=== PATIENT | female | born 1965 | race Caucasian/White ===

== ENCOUNTER → 2021-10-11 16:02 | Outpatient (CLI) | payer OTHER, SELFPAY ==
--- NOTE | 2021-10-11 | DI.ECHO.S_ITS ---
[facility]---------+ [facility] +---------+ : : [address] : : : : [id number] : : : : Phone: [phone]+ Echocardiogram Report + + :Name: WILBERTO BROUSSARD Study Date: 10/11/2021 Height: 62 in : :[facility] ReadingLocation: Weight: 175 lb : : Gender: Female BSA: 1.8 m2 : :: 1965 Age: 56 yrs BP: 133/90 mmHg: :Reason For Study: HYPERTENSION : :Ordering Physician: CIRA, : :TATY Whitley Performed By: Rosalind Mas : :Referring: TATY DENIS : + + Interpretation Summary Normal sinus rhythm. Normal LV size, wall thickness, wall motion and LV systolic function. EF is 60-65%. Mild LA enlargement; otherwise normal chamber sizes. No significant valvular abnormalities. No prior study available for comparison. Procedure: A two-dimensional transthoracic echocardiogram with color flow and Doppler was performed. The study quality was technically adequate. There is no prior echocardiogram noted for this patient. The patient was in sinus bradycardia with heart rates between 55-61 bpm during the exam. Left Ventricle: The left ventricle is normal in size. Proximal septal thickening is noted. The ejection fraction is estimated to be 60-65%. Right Ventricle: The right ventricle is normal in size and function. Atria: The left atrium is mildly dilated. Right atrial size is normal. There is no Doppler evidence for an interatrial shunt. Mitral Valve: The mitral valve is normal in structure and function. There is trace mitral regurgitation. Aortic Valve: The aortic valve is trileaflet. The aortic valve opens well. There is no aortic valve stenosis. No aortic regurgitation is present. Tricuspid Valve: The tricuspid valve is normal in structure and function. There is mild tricuspid regurgitation. Pulmonic Valve: The pulmonic valve leaflets are thin and pliable; valve motion is normal. There is trace pulmonic regurgitation. Great Vessels: The aortic root is normal size. The dimensions of the ascending aorta are normal. The IVC is of normal diameter and collapses greater than 50% with a sniff. This suggests a low right atrial pressure of 3 mm Hg. Pericardium/ Pleura There is no pericardial effusion. There is no pleural effusion. MMode/2D Measurements & Calculations LVIDd: 4.7 cm LVOT diam: 2.0 cm LVIDs: 3.0 cm Ao root diam: 2.8 cm FS: 36.8 % asc Aorta Diam: 3.4 cm IVSd: 0.70 cm Ao Arch Diam (Prox Trans): 3.0 cm LVPWd: 0.84 cm LV patterson. diameter/BSA (cm/m^2): 2.6 LV sys. diameter/BSA (cm/m^2): 1.6 LA A2 area: 22.4 cm2 RA long axis: 5.3 cm LA A4 area: 19.8 cm2 RA area: 15.7 cm2 LA length (vol): 5.5 cm RA vol: 39.8 ml LA vol: 68.5 ml RA : 22.1 ml/m2 LA vol index: 37.9 ml/m2 IVC diam: 1.7 cm RVD1 (basal): 3.8 cm RVD2 (mid): 3.4 cm TAPSE: 1.8 cm Doppler Measurements & Calculations Ao V2 max: 149.6 cm/sec LVOT Max Kai: 114.4 cm/sec Ao V2 mean: 111.7 cm/sec LV V1 max P.2 mmHg Ao max P.0 mmHg LV V1 VTI: 26.2 cm Ao mean P.3 mmHg YULISSA(I,D): 2.0 cm2 Ao V2 VTI: 41.2 cm YULISSA(V,D): 2.4 cm2 sev ratio: 0.64 YULISSA indexed to BSA (cm^2/m^2): 1.1 MV E max kai: 77.8 cm/sec TR max kai: 200.1 cm/sec MV A max kai: 70.2 cm/sec TR max P.0 mmHg MV E/A: 1.1 PA V2 max: 86.6 cm/sec Med Peak E' Kai: 7.4 cm/sec PA V2 mean: 61.4 cm/sec E/E' med: 10.5 PA mean P.7 mmHg Lat Peak E' Kai: 8.0 cm/sec PA pr(Accel): 19.1 mmHg E/E' lat: 9.7 E/e' average: 10.1 MV dec time: 0.26 sec SV([facility]): 81.0 ml Electronically signed by: Deepika Branch M.D. on Reading Physician:10/11/2021 10:51 PM
== END ==
PROVIDERS: Referring Provider Family Medicine; Visit Provider Family Medicine
DX: R93.1 Abnormal findings on diagnostic imaging of heart and coronary circulation (principal); I10 Essential (primary) hypertension; R60.9 Edema, unspecified; Z98.84 Bariatric surgery status; I07.1 Rheumatic tricuspid insufficiency
CPT/HCPCS: 93306

== ENCOUNTER → 2022-02-08 09:58 | Outpatient (CLI) | payer OTHER, SELFPAY ==
[2022-02-08 12:30] LABS: COVID19 -Nasal RAPID Negative (Negative)
== END ==
PROVIDERS: PCP Family Medicine; Referring Provider Orthopaedic Surgery Foot and Ankle Surgery; Visit Provider Orthopaedic Surgery Foot and Ankle Surgery
DX: Z20.822 Contact with and (suspected) exposure to COVID-19 (principal)
CPT/HCPCS: 87635; C9803

== ENCOUNTER 2022-02-10 11:28 | Day surgery (SDC) | payer OTHER, SELFPAY ==
[2022-02-02 09:37] VITALS: BMI 30.9
[2022-02-03 09:52] VITALS: BMI 30.9
[2022-02-10] VITALS (7 sets, daily range): BP systolic 121–139; BP diastolic 72–84; PULSE 60–90; RESP 11–28; TEMP 36.6; O2SAT 96–99; BMI 30.9
[2022-02-10] MEDS: LACTATED RINGERS 1,000 ML 42 ML IV ×2 (12:00→16:18)
--- NOTE | 2022-02-10 14:28 | PM.PREOP ---
Pre-operative Note COVID-19 COVID-19 status: Negative Interval Note History & Physical reviewed/Exam performed by Physician: Yes Changes to H&P: No
[2022-02-10] MEDS: CEFAZOLIN 2 GM/100 ML PREMIX 100 ML IV (15:04)
[2022-02-10] MEDS: ACETAMINOPHEN IV 1,000 MG/100 ML VIAL 400 MG IV (15:08)
--- NOTE | 2022-02-10 15:16 | SUR.OPER ---
Supine on padded OR bed, head on pillow, arms secured on padded arm boards at <90 degrees abduction, legs uncrossed, safety belt at lower torso, tape over blanket right over lower leg. Left lower leg in control of the Surgeon. Tiller bump under left hip and folded blankets under left lower leg. gel pad under right ankle and lower leg.
[2022-02-10] MEDS: EPINEPHrine 1 MG/ML 0.15 MG INJ (15:25)
[2022-02-10] MEDS: BUPIVACAINE 0.25% (PF) VIAL 30 ML INJ (15:26)
--- NOTE | 2022-02-10 16:05 | P.OP_ITS ---
Operative Date/Time/Diagnoses Date of procedure: 02/10/22 Time of procedure: 14:30 Pre-op diagnosis: Left ankle impingement, ankle sprain-left, history of Lulú-en-Y gastric bypass Post-op diagnosis: same Procedure & Clinicians Procedure: Debridement ankle arthroscopic left, CPT code 52828 Same procedure as scheduled: Yes Indications: Patient is a 56-year-old female that presents did with left ankle pain and impingement after a sprain. She has persistent anterior tibiotalar pain along the soft tissue especially when going up inclines consistent with impingement. Pain started getting worse in August of 2021 she got temporary relief with an injection but has now had increased in recurrent pain. She had an MRI from April 2021 the demonstrated mild sprain and her physical exam demonstrates stable ligaments but persistent pain anteriorly across the tibiotalar joint worse with dorsiflexion and implants consistent with anterior ankle impingement. She has been indicated for ankle arthroscopic debridement. The risks and benefits of the procedure have been discussed with the patient and they have been given the opportunity to ask questions. The risks of surgery include but are not limited to infection, persistence of pain, damage to nerves and blood vessels, DVT, PE, cardiopulmonary complications and . The patient expr essed a thorough understanding of the risks and benefits of surgery and has elected to proceed. Consent was signed in the office. Surgeon: Pam Ascencio Click Yes if Unassisted: Yes Anesthesia Type: General and Local Operative Notes Findings: Anterior ankle scarring and synovitis. No osteochondral lesions. No significant bony impingement lesions. Soft tissue debridement completed of scar tissue and synovitis anterior ankle and lateral gutter. Stable ankle ligamentous examination under anesthesia Closure Type: primary Specimen(s): none sent Estimated Blood Loss (mL): 5 Blood products transfused: none Tourniquet time (min): 34 Procedure in detail: Patient was seen in the preoperative unit the site of surgery and site were marked. The informed consent was confirmed. Patient was brought back to the operating room by the anesthesia team positioned supine on the operative table. General anesthesia was administered. A well-padded thigh tourniquet was placed. All bony prominences well padded. Ipsilateral hip bump was placed. The operative left lower extremities prepped and draped in the standard sterile fashion. Formal time-out procedure was performed confirming the patient's side and site of surgery administration of appropriate preoperative antibiotics. All were in agreement. Attention turned to the left lower extremity the skin sites for the medial and lateral portals were marked on the skin with care to avoid the a palpable superficial peroneal nerve and the Esmarch was exsanguinated and the tourniquet raised to 250 mmHg. In dorsiflexion a skin angelina and spread technique was used for the medial portal and then the joint was entered from the medial portal. Under direct visualization the lateral portal was established and taken spread technique. And the shaver introduced. Shaver was used to debride the soft tissue and scar. The joint was inspected. And the findings were as above. Cartilage was intact. There was thick as scar and synovitis along the anterior ankle joint draped over the tibiotalar articulation as well as thick scar along the lateral gutter. This was debrided using both the 2.7 and 4.0 Jacque. Once this was completed the portals were switched and the medial soft tissues were debrided. Was no significant bony impingement lesions. There were no osteochondral lesions. Once a thorough debridement was completed the instruments were removed the tourniquet was released and hemostasis achieved and the portals closed with nylon suture. Local anesthetic was injected for postoperative pain control. A sterile dressing with Xeroform gauze Webril and Freddy wrap were applied then the patient was placed into a walking boot the drapes removed she was woken from anesthesia and taken to recovery room in good condition. There no immediate complications from this procedure. Counts were correct. Complications: none Post-operative Condition: stable Disposition: PACU Plan for aftercare: Weightbear as tolerated in the boot. Can use compression stocking. Will start physical therapy in 2 weeks. Not tolerate narcotic medication cannot take anti- inflammatories. Will use Tylenol for pain. Did receive IV dose of Toradol at Hospital which she has tolerated in the past. Unable to take aspirin. Will be weightbear as tolerated and encouraged to move other extremities and use compression stocking.
[2022-02-10] MEDS: HYDROMORPHONE 2 MG INJ IV (16:16)
[2022-02-10] MEDS: ONDANSETRON 4 MG/2 ML INJ IV (16:16)
== END 2022-02-10 17:10 | disposition home or self-care (01) ==
PROVIDERS: PCP Family Medicine; Referring Provider Orthopaedic Surgery Foot and Ankle Surgery; Visit Provider Orthopaedic Surgery Foot and Ankle Surgery
PROC: (CPT 29897; principal; 2022-02-10 13:15)
DX: M25.872 Other specified joint disorders, left ankle and foot (principal); M65.872 Other synovitis and tenosynovitis, left ankle and foot
CPT/HCPCS: 29897; 01464; 82962; J0131; J0171; J0690; J1170; J1885; J2405; J2704; J3490

== ENCOUNTER → 2023-04-13 08:41 | Outpatient (CLI) | payer OTHER, SELFPAY ==
--- NOTE | 2023-04-13 | DI.RAD.S_ITS ---
PROCEDURE: FL UPPER GI W AIR INDICATIONS: NAUSEA, BLOATING, ABD PAIN, EPIGASTRIC COMPARISON: None. FINDINGS: KUB: Preprocedural prepleater film demonstrates a normal bowel gas pattern. No suspicious abdominal calcifications. Visualized solid organ contours appear normal. Bony structures appear unremarkable. Esophagus: Esophageal mucosa is normal on air-contrast views. On single-contrast views, there is normal esophageal peristalsis. No strictures, extrinsic mass effects, or diverticula. Small intermittent sliding-type hiatal hernia. Scant gastroesophageal reflux was elicited. The calibrated barium tablet passes rapidly through the esophagus and into the gastric pouch. The barium tablet was delayed passing through the proximal jejunum. Stomach: No mucosal masses or ulcers. Rapid transit of contrast through the proximal small bowel. IMPRESSION: Esophageal motility is within normal limits. Small intermittent sliding-type hiatal hernia. Scant gastroesophageal reflux was elicited. Barium tablet passing through the proximal jejunum was slightly delayed. Dictated by: Antonio Bustamante M.D. on 04/13/2023 at 10:36 Approved by: Antonio Bustamante M.D. on 04/13/2023 at 10:40
== END ==
PROVIDERS: PCP Family Medicine; Referring Provider Internal Medicine Gastroenterology; Visit Provider Internal Medicine Gastroenterology
DX: R11.0 Nausea (principal); R14.0 Abdominal distension (gaseous); R10.13 Epigastric pain; K44.9 Diaphragmatic hernia without obstruction or gangrene; K21.9 Gastro-esophageal reflux disease without esophagitis
CPT/HCPCS: 74246